=== PATIENT | female | born 2000 | race African-American/Black ===

== ENCOUNTER 2018-07-19 09:37 | Day surgery (SDC) | payer OTHER ==
[~2018-07-19] VITALS: Ht 170.2 cm; Wt 60.5 kg
[2018-07-19] MEDS ORDERED: TRI FEMYNOR 281 EACH PO (10:08)
--- NOTE | 2018-07-19 10:29 | NUR ---
Initial visit; Patient thanked Corporate Intern for offering encouragement, comfort and prayer prior to her surgical procedure and recovery.
[2018-07-19 12:50] VITALS: BP 124/82; PULSE 71; TEMP 98.2
--- NOTE | 2018-07-19 12:50 | NUR ---
Patient arrives back to [facility] alert and denies having any pain or nausea. Patient monitor applied, vitals stable. Family brought to bedside.
--- NOTE | 2018-07-19 12:55 | NUR ---
Patient given water and muffin.
[2018-07-19 13:05] VITALS: BP 104/72; PULSE 82
--- NOTE | 2018-07-19 13:05 | NUR ---
Patient tolerates water and muffin without any complications.
--- NOTE | 2018-07-19 13:15 | NUR ---
Patient up to restroom and is able to urinate without any difficulties.
[2018-07-19 13:20] VITALS: BP 123/77; PULSE 70
--- NOTE | 2018-07-19 13:30 | NUR ---
Dismissal instructions gone over with patient and family. All voice understanding and all questions answered.
--- NOTE | 2018-07-19 13:35 | NUR ---
Patient and family discharged to home. Patient and family thank staff for services.
[2018-07-19 13:42] VITALS: BP 132/82; PULSE 82; TEMP 98.2
== END 2018-07-19 13:35 | disposition home or self-care (01) ==
LOC: SDCO 09:37
DX: N20.0 Calculus of kidney (principal); R31.0 Gross hematuria; R35.0 Frequency of micturition; R39.15 Urgency of urination; Z79.899 Other long term (current) drug therapy
CPT/HCPCS: J0690; J1100; J1885; J2250; J2405; J2704; J3010; J7120

== ENCOUNTER 2019-06-04 17:41 | Observation (INO) | payer OTHER ==
[~2019-06-04] VITALS: Ht 172.7 cm; Wt 59.1 kg
[~2019-06-04 17:41] MED LIST: TRI FEMYNOR 281 EACH PO
[2019-06-04 18:38] LABS: COLLECTION METHOD CLEAN CATCH
[2019-06-04 18:45] LABS: BASO # 0.1 (0.0-0.2); BASO % 0.4 % (0.0-2.0); EOS % 0.3 % (0-4.0); GRAN % 85.4 % (42.2-75.2); HEMOGLOBIN 11.7 g/dl (12.0-15.0); LYMPH # 1.5 (1.2-3.4); LYMPH % 10.7 % (20.0-51.0); MEAN CELL VOLUME 92 fl (80.0-95.0); MEAN CORPUSCULAR HEMOGLOBIN 30 pg (26.0-32.0); MEAN CORPUSCULAR HGB CONC 32 g/dl (33.0-37.0); MEAN PLATELET VOLUME 9.4 fl (7.4-10.4); MONO # 0.4 (0.1-0.6); MONO % 2.6 % (1.7-9.3); PLATELET COUNT 491 K/mm3 (130-400); RED BLOOD COUNT 3.97 M/mm3 (4.10-5.30)
[2019-06-04 18:47] LABS: HEMATOCRIT 36.7 % (35.0-45.0)
[2019-06-04 18:57] LABS: ALANINE AMINOTRANSFERASE 30 U/L (9-52); ALBUMIN 4.6 gm/dL (3.5-5.0); ALKALINE PHOSPHATASE 104 U/L (50-136); ANION GAP 12 mmol/L (7-16); AST,SGOT 36 U/L (15-37); BILIRUBIN,TOTAL 0.6 mg/dL (0.0-1.0); BLOOD UREA NITROGEN 13 mg/dL (7-17); CALCIUM 9.9 mg/dL (8.4-10.2); CARBON DIOXIDE 27 mmol/L (22-30); CHLORIDE 104 mmol/L (98-107); CREATININE, serum 0.92 (0.52-1.25); GLUCOSE 114 mg/dL (74-106); LIPASE 65 U/L (23-300); SODIUM 142 mmol/L (137-145); TOTAL PROTEIN 8.5 gm/dL (6.4-8.2)
[2019-06-04 18:59] LABS: MUCOUS Present /lpf; PH 7 (5-8); SQUAMOUS EPITHELIAL 0-2 /hpf; URINE APPEARANCE Cloudy; URINE BACTERIA Rare /hpf; URINE BILIRUBIN Negative (NEGATIVE); URINE BLOOD 2+ (NEGATIVE); URINE COLOR Yellow; URINE GLUCOSE Negative (NEGATIVE); URINE KETONE Trace (NEGATIVE); URINE LEUKOCYTE ESTERASE 2+ (NEGATIVE); URINE NITRATE Positive (NEGATIVE); URINE PROTEIN(semi-quant) 2+ (NEGATIVE); URINE RBC >50 /hpf; URINE UROBILINOGEN Negative (NEGATIVE)
[2019-06-04 19:00] LABS: C-REACTIVE PROTEIN < 0.5 mg/dL (0.0-0.9)
[2019-06-04 22:23] VITALS: BP 129/81; PULSE 75; TEMP 98.8
--- NOTE | 2019-06-04 22:30 | NUR ---
Pt arrived to unit from ED. Pt is healthy 18 year old female, alert and oriented with vss. 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 IV to left forearm. See assessment, pt has no health history and does not take any medications at home. Heart and lung sounds normal. C/o mild flank pain. Denies other needs at this time. Call light within reach, will continue to monitor
[2019-06-05 03:38] VITALS: BP 104/56; PULSE 78; TEMP 98.4
--- NOTE | 2019-06-05 08:00 | NUR ---
Patient in bed resting. Alert and oriented x 3. Assessment complete. Denies pain at this time. IV fluids infusing per orders. Denies further needs at this time. Will continue to monitor. Dr. Curran in to see patient.
[2019-06-05 08:36] VITALS: BP 110/53; PULSE 82; TEMP 99.2
--- NOTE | 2019-06-05 11:06 | NUR ---
Container Maker met with patient to discuss discharge planning. Patient states she is a student at [employer] and [facility]. Patient reports she does not have a primary care physician and when she is sick she utilizes [facility] [place] on campus. Patient states she obtains any needed medications at [facility] or [facility]. Patient does not use any DME and is independent with ADLS. Patient states her grandmother, Jodie (ph#[phone]) lives in [place]. Upon discharge, patient's Aunt Livier will pick her up. Patient states she may stay with her Aunt for a day or so before returning to the [facility] [employer]. No concerns at this time.
[2019-06-05 11:18] VITALS: BP 112/66; PULSE 94; TEMP 98.1
--- NOTE | 2019-06-05 11:52 | NUR ---
First visit from the embedded software manager. No needs right now.
--- NOTE | 2019-06-05 13:04 | NUR ---
Contacted by Dr. Curran, patient ok to eat lunch.Order entered.
[2019-06-05 16:06] VITALS: BP 120/83; PULSE 82; TEMP 99.3
--- NOTE | 2019-06-05 18:28 | NUR ---
Patient has done well throughout the day. Minimal needs, independent in room. Has been straining urine, has not passed stone yet. Denies pain at this time, states she is only having mild burning with urination. Denies further needs at this time.
--- NOTE | 2019-06-05 18:47 | NUR ---
Discharge education provided to patient and friends. Educated on when to call provider and follow up. Educated on all new medications. All questions answered. INT to left AC discontinued. Denies further needs at this time. Patient ambulated out with surgical staff and friends.
== END 2019-06-05 18:50 | disposition home or self-care (01) ==
LOC: COL.ER 17:41 → SURG 19:50
PROVIDERS: Emergency Medicine; ADMIT Urology
DX: N20.1 Calculus of ureter (principal)
CPT/HCPCS: G0378; J0696; J1885; J2405; J3010; J7030; Q9967